=== PATIENT | male | born 1950 ===

== ENCOUNTER 2017-10-22 19:44 | Emergency (ER) | payer BC ==
[~2017-10-22] VITALS: Ht 177.8 cm; Wt 90.7 kg
[~2017-10-22 19:44] MED LIST: ALLOPURINOL100 MG PO; ASPIR 8181 MG PO; AVAPRO300 MG PO; CLARITIN10 MG PO; CLOPIDOGREL75 MG PO; LIPITOR10 MG PO; PLAVIX75 MG PO; TOPROL XL50 MG PO; VITAMIN D5000 UNIT PO
[2017-10-22] MEDS ORDERED: NITROSTAT0.4 MG SL (19:54)
[2017-10-22] MEDS ORDERED: LIPITOR80 MG GT (19:55)
--- NOTE | 2017-10-24 23:47 | EKG ---
[facility] [address] [facility] [place] [address] Signed Sinus bradycardia Nonspecific intraventricular conduction delay Nonspecific ST abnormality Abnormal ECG When compared with ECG of 04-OCT-2016 10:41, Questionable change in QRS duration Confirmed by GUIDO DOVE MD ([id number]) on 10/24/2017 11:46:59 PM Electronically Signed By: GUIDO DOVE MD 10/24/17 [id number] PATIENT NAME: LEXI ALCALAO Electrocardiogram DATE OF : 50 PHYSICIAN: GUIDO DOVE MD REPORT #: [id number] REPORT IS CONFIDENTIAL AND NOT TO BE RELEASED WITHOUT AUTHORIZATION
== END 2017-10-22 21:59 | disposition short-term general hospital (02) ==
LOC: ED 19:44
DX: I21.4 Non-ST elevation (NSTEMI) myocardial infarction (principal); I10 Essential (primary) hypertension; Z95.5 Presence of coronary angioplasty implant and graft; Z98.890 Other specified postprocedural states; Z88.8 Allergy status to other drugs, medicaments and biological substances; Z91.013 Allergy to seafood; Z79.82 Long term (current) use of aspirin; Z79.899 Other long term (current) drug therapy
CPT/HCPCS: 71046; 80053; 84484; 85025; 93005; 93010; 96361; 96372; 96374; 96375; 96376; 99285; J1650; J2270; J2405; J7030